=== PATIENT | female | born 1970 | race Caucasian/White ===

== ENCOUNTER 2023-04-13 17:58 | Emergency (ER) | payer SELFPAY ==
[~2023-04-13] VITALS: Ht 165.1 cm; Wt 70.3 kg
[2023-04-13] MEDS ORDERED: HYDROXYZINE PAM25 M1 PO (19:23)
[2023-04-13] MEDS ORDERED: ZESTORETIC 20-1 EAC1 PO (19:24)
[2023-04-13] MEDS ORDERED: Motrin,Rufen800 MG PO (19:24)
[2023-04-13] MEDS ORDERED: ATENOLOL25 MG PO (19:25)
[2023-04-13] MEDS ORDERED: LISINOPRIL40 MG PO (21:56)
== END 2023-04-13 21:59 | disposition home or self-care (01) ==
LOC: ED 17:58
DX: I16.0 Hypertensive urgency (principal); F41.9 Anxiety disorder, unspecified; Z88.0 Allergy status to penicillin; Z88.1 Allergy status to other antibiotic agents; Z88.8 Allergy status to other drugs, medicaments and biological substances; Z90.49 Acquired absence of other specified parts of digestive tract

== ENCOUNTER 2023-11-15 13:08 | Emergency (ER) | payer SELFPAY ==
[~2023-11-15] VITALS: Ht 165.1 cm; Wt 77.1 kg
[~2023-11-15 13:08] MED LIST: ATENOLOL25 MG PO; HYDROXYZINE PAM25 M1 PO; LISINOPRIL40 MG PO; Motrin,Rufen800 MG PO; ZESTORETIC 20-1 EAC1 PO
[2023-11-15] MEDS ORDERED: Ketorolac Tromethamine 60 MG/2 ML VIAL IM ONE (13:40)
[2023-11-15] MEDS ORDERED: Dexamethasone Sodium Phospha 20 MG/5 ML VIAL IM ONE (13:40)
[2023-11-15] MEDS ORDERED: MELOXICAM15 MG PO (15:11)
[2023-11-15] MEDS ORDERED: CYCLOBENZAPRINE5 M3 PO (15:11)
== END 2023-11-15 15:14 | disposition home or self-care (01) ==
LOC: ED 13:08
DX: M62.830 Muscle spasm of back (principal); M54.50 Low back pain, unspecified; I10 Essential (primary) hypertension; Z88.0 Allergy status to penicillin; Z88.1 Allergy status to other antibiotic agents; Z88.8 Allergy status to other drugs, medicaments and biological substances; Z79.899 Other long term (current) drug therapy

== ENCOUNTER 2024-01-01 14:01 | Emergency (ER) | payer SELFPAY ==
[~2024-01-01] VITALS: Ht 167.6 cm; Wt 74.8 kg
[~2024-01-01 14:01] MED LIST changes: +CYCLOBENZAPRINE5 M3 PO; +MELOXICAM15 MG PO
[2024-01-01] MEDS ORDERED: cloNIDine Hydrochloride 0.1 MG TAB PO ONE (14:15)
[2024-01-01] MEDS ORDERED: ACETAMINOPHEN 325 MG TAB PO ONE (14:15)
[2024-01-01] MEDS ORDERED: Dexamethasone Sodium Phospha 20 MG/5 ML VIAL IM ONE (14:15)
[2024-01-01] MEDS ORDERED: METHOCARBAMOL 500 MG TAB PO ONE (14:15)
[2024-01-01] MEDS ORDERED: LISINOPRIL40 MG PO (15:22)
[2024-01-01] MEDS ORDERED: ATENOLOL25 MG PO (15:22)
[2024-01-01] MEDS ORDERED: METHOCARBAMOL500 M1 PO (15:23)
== END 2024-01-01 15:34 | disposition home or self-care (01) ==
LOC: ED 14:01
DX: M62.830 Muscle spasm of back (principal); I16.0 Hypertensive urgency; G89.29 Other chronic pain; Z88.0 Allergy status to penicillin; Z88.1 Allergy status to other antibiotic agents; Z88.8 Allergy status to other drugs, medicaments and biological substances; Z79.899 Other long term (current) drug therapy